=== PATIENT | female | born 1960 | race Caucasian/White ===

== ENCOUNTER → 2023-12-09 13:40 | Outpatient (REF) | payer BC, SELFPAY | LOC: HWRAD 13:40 | PROVIDERS: ATTENDING PHYSICIAN Family Medicine | DX: R10.30 Lower abdominal pain, unspecified (principal) | CPT/HCPCS: 74177; Q9967 ==

== ENCOUNTER → 2023-12-14 08:02 | Outpatient (REF) | payer BC, SELFPAY | LOC: HWEVLT 08:02 | PROVIDERS: ATTENDING PHYSICIAN Radiology Diagnostic Radiology | DX: I83.893 Varicose veins of bilateral lower extremities with other complications (principal) | CPT/HCPCS: 93970 ==

== ENCOUNTER → 2023-12-20 08:41 | Outpatient (REF) | payer BC, SELFPAY | LOC: RAD 08:41 | PROVIDERS: ATTENDING PHYSICIAN Family Medicine | DX: K21.00 Gastro-esophageal reflux disease with esophagitis, without bleeding (principal) | CPT/HCPCS: 74221 ==

== ENCOUNTER → 2024-01-31 07:42 | Outpatient (REF) | payer BC, SELFPAY | LOC: HWRAD 07:42 | PROVIDERS: ATTENDING PHYSICIAN Internal Medicine | DX: M81.0 Age-related osteoporosis without current pathological fracture (principal) | CPT/HCPCS: 77080 ==

== ENCOUNTER 2024-04-13 01:23 | Emergency (ER) | payer BC, SELFPAY ==
[2024-04-13 01:25] VITALS: BP 166/102
[2024-04-13 02:41] VITALS: BP 144/90
[2024-04-13 02:55] LABS: % Basophils 0.8 % (0-2); % Eosinophils 2.5 % (0-6); % Immature Granulocytes 0.3 % (0-0.5); % Lymphocytes 18.5 % (20.5-51.1); % Monocytes 11.6 % (1.7-9.3); % Neutrophils 66.3 % (42.2-75.2); Absolute Basophils 0.1 10^3/uL (0-0.2); Absolute Eosinophils 0.2 10^3/uL (0-0.7); Absolute Lymphocytes 1.1 10^3/uL (1.2-3.4); Absolute Monocytes 0.7 10^3/uL (0.1-0.6); Absolute Neutrophils 3.9 10^3/uL (1.4-6.5); Hematocrit 39.6 % (37.0-47.0); Mean Corp Hgb Conc. 32.8 g/dL (33.0-37.0); Mean Corpuscular Hgb 29.2 pg (27.0-31.0); Mean Platelet Volume 9.5 fL (7.4-10.4); Nucleated Red Blood Cells % 0 %; Platelet Count 243 10^3/uL (130-400); Red Blood Cell Count 4.45 10^6/uL (4.20-5.40); Red Cell Dist. Width 13.2 % (11.5-14.5)
[2024-04-13 03:00] VITALS: BP 130/85
[2024-04-13 03:15] LABS: ALT (SGPT) 31 U/L (0-35); AST (SGOT) 35 U/L (14-36); Albumin 5.1 g/dl (3.5-5.0); Alkaline Phosphatase 66 U/L (38-126); Blood Urea Nitrogen 14 mg/dl (7-17); Calcium 9.4 mg/dl (8.4-10.2); Carbon Dioxide 25 mmol/L (22-30); Chloride 104 mmol/L (98-107); Glucose 112 mg/dl (70-99); Lipase 94 U/L (23-300); Potassium 3.9 mmol/L (3.5-5.1); Sodium 140 mmol/L (135-145); Total Bilirubin 0.5 mg/dl (0.2-1.3); Total Protein 7.5 g/dl (6.3-8.2); eGFR > 60.00
[2024-04-13 04:00] VITALS: BP 136/83
--- NOTE | 2024-04-13 06:20 | ED.GENMED ---
History of Present Illness
<DO Marco Vaca Last Filed: 04/13/24 06:22>
General
Chief Complaint: Abdominal Symptoms
Source: patient and spouse
Exam Limitations: none
Time Seen by Provider: 04/13/24 03:02
Nursing documentation reviewed up to this point in time: agreed with
History of Present Illness
History of Present Illness:
63-year-old female presents emergency department due to epigastric pain and bloating ongoing for the past 3 to 4 days. It is worse after eating.
Past History
<DO Marco Vaca Last Filed: 04/13/24 06:22>
Past History
ED Past Medical History: None
ED Past Surgical History: Gynecological (D&C) and Tonsilectomy
Social History
Tobacco: Non-smoker
Alcohol: None
Drug: None
Personal:
Living: with family
Review of Systems
<Ever Long DO Marco Last Filed: 04/13/24 06:22>
Review of Systems
Allergies reviewed?: Yes
All Other Systems: Not applicable
Constitutional: Reports no symptoms
EENT: Reports no symptoms
Respiratory: Reports no symptoms
Cardiac: Reports no symptoms
ABD/GI: Reports abdominal pain
: Reports no symptoms
Musculoskeletal: Reports no symptoms
Skin: Reports no symptoms
Neurological: Reports no symptoms
Endocrine: Reports no symptoms
Hematologic/Lymphatic: Reports no symptoms
Psychiatric: Reports no symptoms
Phy Exam
<Ever Long DO - Last Filed: 04/13/24 06:22>
Physical Exam
Physical Exam:
Physical Exam
General: no apparent distress, not acutely ill
Neck: supple. no meningeal signs. normal posterior pharynx
Heart: s1/s2 regular rate and rhythm, no murmur. equal radial
pulses.
HEENT: Pupils equal round reactive to light, EOMI
Lungs: no acute respiratory distress. clear bilaterally
Abdomen: normal bowel sounds. Mild epigastric tenderness. no CVAT
Neuro: alert and oriented. no focal neurological deficits cranial nerves II through XII intact
Skin: no rash
Psychiatric: well kept. interactive and cooperative
Extremities: no edema. no calf tenderness. negative homans. good distal pulses
Course
<Ever Long, DO - Last Filed: 04/13/24 06:22>
Orders/Labs/Results
Orders:
Orders
04/13/24 02:36
IV Insert/Care/Rem.- Treatment PRN
04/13/24 02:39
Complete Blood Count/With Diff Urgent
Comprehensive Metabolic Panel Urgent
Lipase Urgent
04/13/24 02:56
Ketorolac [Toradol] 15 mg .ROUTE .STK-MED ONE
04/13/24 03:16
CT Abd/pelvis W Iv Cont Urgent
Comment:
Reason For Exam: epigastric pain, bloating
04/13/24 05:46
US Abdomen Complete/Upper Urgent
Comment:
Reason For Exam: RUQ abdominal pain
Abnormal Lab Results
04/13/24
02:39
MCHC 32.8 L g/dL
(33.0-37.0)
Absolute Lymphs (auto) 1.1 L 10^3/uL
(1.2-3.4)
Absolute Monos (auto) 0.7 H 10^3/uL
(0.1-0.6)
Lymphocytes % 18.5 L %
(20.5-51.1)
Monocytes % 11.6 H %
(1.7-9.3)
Glucose 112 H mg/dl
(70-99)
Albumin 5.1 H g/dl
(3.5-5.0)
04/13/24 02:39
04/13/24 02:39
Vital Signs
Initial and Last Documented VS:
Initial Vital Signs
Temp Pulse Resp BP Pulse Ox
98.2 F 87 16 166/102 99
04/13/24 01:25 04/13/24 01:25 04/13/24 01:25 04/13/24 01:25 04/13/24 01:25
Last Documented Vital Signs
Temp Pulse Resp BP Pulse Ox
98.2 F 87 16 146/83 97
04/13/24 01:25 04/13/24 01:25 04/13/24 01:25 04/13/24 08:15 04/13/24 08:15
<Denis Duran MD - Last Filed: 04/14/24 15:55>
Orders/Labs/Results
Orders:
Orders
04/13/24 02:36
IV Insert/Care/Rem.- Treatment PRN
04/13/24 02:39
Complete Blood Count/With Diff Urgent
Comprehensive Metabolic Panel Urgent
Lipase Urgent
04/13/24 02:56
Ketorolac [Toradol] 15 mg .ROUTE .STK-MED ONE
04/13/24 03:16
CT Abd/pelvis W Iv Cont Urgent
Comment:
Reason For Exam: epigastric pain, bloating
04/13/24 05:46
US Abdomen Complete/Upper Urgent
Comment:
Reason For Exam: RUQ abdominal pain
Abnormal Lab Results
04/13/24
02:39
MCHC 32.8 L g/dL
(33.0-37.0)
Absolute Lymphs (auto) 1.1 L 10^3/uL
(1.2-3.4)
Absolute Monos (auto) 0.7 H 10^3/uL
(0.1-0.6)
Lymphocytes % 18.5 L %
(20.5-51.1)
Monocytes % 11.6 H %
(1.7-9.3)
Glucose 112 H mg/dl
(70-99)
Albumin 5.1 H g/dl
(3.5-5.0)
04/13/24 02:39
04/13/24 02:39
Vital Signs
Initial and Last Documented VS:
Initial Vital Signs
Temp Pulse Resp BP Pulse Ox
98.2 F 87 16 166/102 99
04/13/24 01:25 04/13/24 01:25 04/13/24 01:25 04/13/24 01:25 04/13/24 01:25
Last Documented Vital Signs
Temp Pulse Resp BP Pulse Ox
98.2 F 87 16 146/83 97
04/13/24 01:25 04/13/24 01:25 04/13/24 01:25 04/13/24 08:15 04/13/24 08:15
<Ever Long DO - Last Filed: 04/13/24 06:22>
MDM/Problems Addressed
Differential Diagnosis Includes:
Cholecystitis, diverticulitis
MDM/Problems Addressed:
63-year-old female with epigastric pain. CT scan shows mildly distended gallbladder. Will obtain ultrasound for further evaluation. If negative, patient will be discharged home
<Ever Long DO - Last Filed: 04/13/24 06:22>
*Radiology
Radiology exam reviewed: radiology read reviewed (CT abdomen pelvis shows mildly distended gallbladder, otherwise no acute findings)
*Pulse Oximetry
Patient hypoxic: no
<Denis Duran MD - Last Filed: 04/14/24 15:55>
*Critical Care Note
Total Time (30-74mins, 75-104mins- exclusive of procedures): Not Applicable
<Denis Duran MD - Last Filed: 04/14/24 15:55>
Update Note
Update Note:
CT / US report reviewed and discussed with patient. Patient still complaining of mild bloating sensation. However, repeat abdominal exam: Soft and nontender. Patient does state that she has had trouble moving her bowels recently, correlating with
what was noted on CT scan. As such, will recommend conservative treatment, including bland diet, hydration, PPI, along with outpatient stool regimen. Advised to return to ED with worsening symptoms, i.e. fever/worsening pain/vomiting. Patient
expresses understanding at time of discharge, to the care of her spouse.
ED Attending Note
<Ever Long DO - Last Filed: 04/13/24 06:22>
-
Portions of this chart may have been created with voice recognition software.� Occasional wrong word or��sound alike� substitutions may have occurred due to the inherent limitations of voice recognition software.
Discharge Plan
Departure
Patient Disposition: Home (Routine Discharge)
Date of Disposition: 04/13/24
Time of Disposition: 07:44
Patient with high blood pressure during this ER visit?: Yes
Condition: Good
Discharge Problem:
Abdominal pain
Instructions: [place] Diet, Abdominal Pain
Referrals:
Bella Melissa MD [Family Provider] -
Activity Restrictions/Additional Instructions:
As discussed, please follow-up with your primary care physician for reevaluation. Please consider returning to ED with worsening symptoms, i.e. fever/worsening pain/vomiting.
Interventions
Interventions:
*Risk Screen - Suicide Last Done: 04/13/24 07:55
*General Assessment Last Done: 04/13/24 01:25
*Neglect/Abuse Screening Last Done: 04/13/24 01:25
ED- Fall Risk Assessment Last Done: 04/13/24 03:30
*ED COVID-19 Vaccine History Last Done: 04/13/24 01:25
*Nursing Disposition Last Done: 04/13/24 08:16
TN-[id number] Assessment Last Done: 04/13/24 03:30
Discharge Date and Time
Discharge Date/Time: 04/13/24 08:17
Print Language: CZECH
[2024-04-13 07:33] VITALS: BP 146/83
[2024-04-13 08:15] VITALS: BP 146/83
== END 2024-04-13 08:17 | disposition home or self-care (01) ==
LOC: EMR 01:23
PROVIDERS: EMERGENCY PHYSICIAN Emergency Medicine; FAMILY PHYSICIAN Internal Medicine
DX: R10.11 Right upper quadrant pain (principal); R10.13 Epigastric pain; R14.0 Abdominal distension (gaseous); R11.0 Nausea; K82.8 Other specified diseases of gallbladder; R03.0 Elevated blood-pressure reading, without diagnosis of hypertension; Z91.040 Latex allergy status
CPT/HCPCS: 99284; 74177; 76700; 80053; 83690; 85025; Q9967